=== PATIENT | male | born 1970 | race African-American/Black ===

== ENCOUNTER 2018-12-20 13:38 | Inpatient (IN) | payer OTHER ==
[2018-12-20 15:57] VITALS: BMI 28.8
--- NOTE | 2018-12-20 17:36 | HP ---
COWS - Scale Resting Pulse: 1= [place] 81-100 Sweatin= Chills/Flushing Restless Observation: 3= Extraneous Movement Pupil Size: 1= Pupils >than Normal Bone or Joint Aches: 2= Severe Diffuse Aches Runny Nose/ Eye Tearin= Runny Nose/Eyes GI Upset > 30mins: 3= Vomiting/Diarrhea Tremor Observation: 4= Gross Tremor/Twitching Yawning Observation: 0= None Anxiety or Irritability: 1=Feels Anxious/Irritable Goose Flesh Skin: 0=Smooth Skin COWS Score: 18 CIWA Score Nausea/Vomitin Muscle Tremors: 4-Moderate,w/Arms Extend Anxiety: 3 Agitation: 0-Normal Activity Paroxysmal Sweats: 2 Orientation: 0-Oriented Tacttile Disturbances: 1-Very Mild Itch/Numbness Auditory Disturbances: 0-None Visual Disturbances: 0-None Headache: 0-None Present CIWA-Ar Total Score: 13 - Admission Criteria [facility]ASAS Guidelines: Admission for Medically Managed Detox: Requires at least one of the followin. CIWA greater than 12 2. Seizures within the past 24 hours 3. Delirium tremens within the past 24 hours 4. Hallucinations within the past 24 hours 5. Acute intervention needed for co occurring medical disorder 6. Acute intervention needed for co occurring psychiatric disorder 7. Severe withdrawal that cannot be handled at a lower level of care (continued vomiting, continued diarrhea, abnormal vital signs) requiring intravenous medication and/or fluids 8. Patient presents the following: CIWA greater than 12 Admission Criteria Met: Admission criteria met Admission ROS [facility] Chief Complaint: alcohol and opioid withdrawal symptoms Allergies/Adverse Reactions: Allergies Allergy/AdvReac Type Severity Reaction Status Date / Time No Known Allergies Allergy Verified 12/20/18 15:44 History of Present Illness: Patient is a 48 yo AA male, domiciled with hx polysubstance use disorder: heroin , cocaine, marijuana, PCP and alcohol is here seeking inpatient detox d/t alcohol and opioid withdrawal symptoms, reports first time seeking treatment is currency under parole, reports was refered by his [facility] program [facility]. Denies hx of MAT tx. Denies hx of seizures, overdose or blackouts. PMHX: denies. Psych: anxiety and schizophrenia (IM Haldol injection at [facility] as per patient last injection 12/19/18) Denies SI/HI, reports hx of suicide attempt in 2013 Exam Limitations: No Limitations - Ebola screening Have you traveled outside of the country in the last 21 days: No Have you had contact with anyone from an Ebola affected area: No Do you have a fever: No - Review of Systems Constitutional: Chills, Loss of Appetite, Changes in sleep, Weakness, Unintentional Wgt. Loss EENT: reports: Nose Congestion Respiratory: reports: No Symptoms reported Cardiac: reports: No Symptoms Reported GI: reports: Diarrhea, Nausea, Poor Appetite, Poor Fluid Intake, Vomiting, Abdominal cramping : reports: No Symptoms Reported Musculoskeletal: reports: Back Pain, Muscle Pain Integumentary: reports: No Symptoms Reported Neuro: reports: Tremors (attributes to haldol injection) Endocrine: reports: No Symptoms Reported Hematology: reports: No Symptoms Reported Psychiatric: reports: Orientated x3, Anxious Other Systems: Reviewed and Negative Patient History - Patient Medical History Hx Anemia: No Hx Asthma: No Hx Chronic Obstructive Pulmonary Disease (COPD): No Hx Cancer: No Hx Cardiac Disorders: No Hx Congestive Heart Failure: No Hx Hypertension: No Hx Hypercholesterolemia: No Hx Pacemaker: No HX Cerebrovascular Accident: No Hx Seizures: No Hx Dementia: No Hx Diabetes: No Hx Gastrointestinal Disorders: No Hx Liver Disease: No Hx Genitourinary Disorders: No Hx Sexually Transmitted Disorders: No Hx Renal Disease (ESRD): No Hx Thyroid Disease: No Hx Human Immunodeficiency Virus (HIV): No Hx Hepatitis C: No Hx Depression: Yes Hx Suicide Attempt: Yes Hx Schizophrenia: Yes - Patient Surgical History Past Surgical History: No - PPD History Previous Implant?: No (+ TB Exposure 1996 tx w/ [facility]) Documented Results: Positive w/o proof PPD to be Administered?: No - Smoking Cessation Smoking history: Current every day smoker Have you smoked in the past 12 months: Yes Aproximately how many cigarettes per day: 20 Hx Chewing Tobacco Use: No Initiated information on smoking cessation: Yes 'Breaking Loose' booklet given: 12/20/18 - Substance & Tx. History Hx Alcohol Use: Yes Hx Substance Use: Yes Substance Use Type: Alcohol, Cocaine, Heroin, Marijuana, Opiates Hx Substance Use Treatment: No - Substances abused Heroin Substance route: Inhalation Frequency: Daily Amount used: 2 bags Age of first use: 17 Date of last use: 12/19/18 Cocaine Substance route: Smoking Frequency: Daily Amount used: $100 Age of first use: 17 Date of last use: 12/19/18 Marijuana/Hashish Substance route: Smoking Frequency: Daily Amount used: $40 Age of first use: 17 Date of last use: 12/19/18 PCP Substance route: Smoking Frequency: 1-3 times last 30 days Amount used: 2 bags Age of first use: 17 Date of last use: 12/13/18 Alcohol Substance route: Oral Frequency: Daily Amount used: 5 x 40 oz + 2 pints of liquor Age of first use: 17 Date of last use: 12/19/18 Family Disease History - Family Disease History Family Disease History: Other: Grandparent (heart disease ) Admission Physical Exam [facility] - Vital Signs Vital Signs: Vital Signs - 24 hr 12/20/18 15:43 Temperature 97.6 F Pulse Rate 81 Respiratory 18 Rate Blood Pressure 129/87 - Physical General Appearance: Yes: Disheveled, Mild Distress, Tremorous, Anxious HEENTM: Yes: EOMI, Hearing grossly Normal, Normal ENT Inspection, Normocephalic , Normal Voice, AMARA, Tm's normal, Other (involuntary tounge movents ( attributes to chronic haldol medication use)) Respiratory: Yes: Chest Non-Tender, Lungs Clear, Normal Breath Sounds, No Respiratory Distress, No Accessory Muscle Use Neck: Yes: Within Normal Limits Breast: Yes: Breast Exam Deferred Cardiology: Yes: Regular Rhythm, Regular Rate Abdominal: Yes: Normal Bowel Sounds, Non Tender, Soft, Protuberent Genitourinary: Yes: Within Normal Limits Back: Yes: Normal Inspection Musculoskeletal: Yes: full range of Motion, Gait Steady, Pelvis Stable Extremities: Yes: Normal Capillary Refill, Normal Inspection, Normal Range of Motion, Non-Tender Neurological: Yes: accounting practice manager II-XII NML intact, Fully Oriented, Alert, Motor Strength 5/5, Normal Mood/Affect, Normal Response Integumentary: Yes: Normal Color, Dry, Warm Lymphatic: Yes: Within Normal Limits - Diagnostic (1) Opioid dependence with withdrawal Current Visit: Yes Status: Acute Comment: Patient wishes to attend suboxone maintance program upon completing detox. Risk and benefits discussed methadone detox (2) Alcohol dependence with uncomplicated withdrawal Current Visit: Yes Status: Acute Comment: librium detox harm reduction reviewed follow up with rehab (3) Cocaine dependence, uncomplicated Current Visit: Yes Status: Acute Comment: harm reduction reviewed follow up with rehab (4) Cannabis dependence, uncomplicated Current Visit: Yes Status: Acute Comment: harm reduction reviewed follow up with rehab (5) Psychiatric disorder Current Visit: Yes Status: Suspected Comment: reports hx of schizophernia and reports received haldol injection 12/19/18 at [facility]. psych consult ordered continue to monitor Cleared for Admission S - Detox or Rehab [facility] Level of Care: Medically Managed Detox Regimen/Protocol: Methadone/Librium Breathalyzer - Breathalyzer Breathalyzer: 0 Urine Drug Screen - Test Device Lot number: [id number] Expiration date: 09/07/20 - Control Is test valid?: Yes - Results Drug screen NEGATIVE: No Urine drug screen results: THC-Marijuana, RUBINA-Cocaine, MOP-Opiates Inpatient Rehab Admission - Rehab Decision to Admit Inpatient rehab admission?: No
[2018-12-20] MEDS ORDERED: METHADONE HCL 10 MG TABLET (FOR DETOX USE ONLY) PO ONE (17:46)
[2018-12-20] MEDS ORDERED: NICOTINE POLACRILEX 2 MG GUM BUC PRN (17:46)
[2018-12-20] MEDS ORDERED: cloNIDine HCL 0.1 MG TABLET PO PRN (17:46)
[2018-12-20] MEDS ORDERED: BISMUTH SUBSALICYLATE 524 MG/30 ML UD PO PRN (17:46)
[2018-12-20] MEDS ORDERED: IBUPROFEN 400 MG TABLET (FP) PO PRN (17:46)
[2018-12-20] MEDS ORDERED: MAGNESIUM CITRATE 300 ML BOTTLE PO PRN (17:46)
[2018-12-20] MEDS ORDERED: ACETAMINOPHEN 325 MG TABLET (FP) PO PRN ×2 (17:46)
[2018-12-20] MEDS ORDERED: MAG HYDROX/AL HYDROX/SIMETH 30 ML UNIT-DOSE CUP PO PRN (17:46)
[2018-12-20] MEDS ORDERED: MENTHOL/PHENOL 1 EACH UD MM PRN (17:46)
[2018-12-20] MEDS ORDERED: MAGNESIUM HYDROX 2400MG/30ML ORAL SUSPENSION 30 ML CUP PO PRN (17:46)
[2018-12-20] MEDS ORDERED: METHOCARBAMOL 500 MG TABLET PO PRN (17:46)
[2018-12-20] MEDS ORDERED: chlordiazePOXIDE HCL 25 MG CAPSULE PO PRN (17:46)
[2018-12-20] MEDS ORDERED: MELATONIN 5 MG TABLETS PO PRN (17:46)
[2018-12-20] MEDS ORDERED: diphenhydrAMINE HCL 25 MG CAPSULE (FP) PO ONE (20:45)
[2018-12-20] MEDS: chlordiazePOXIDE HCL 25 MG CAPSULE PO SCH (22:15)
[2018-12-20] MEDS: THIAMINE HCL 100 MG TABLET (FP) PO SCH (22:15)
[2018-12-20] MEDS: diphenhydrAMINE HCL 50 MG CAPSULE PO SCH (22:16)
[2018-12-21] MEDS: chlordiazePOXIDE HCL 25 MG CAPSULE PO SCH ×4 (06:14→22:27)
[2018-12-21 09:53] LABS: ALBUMIN 3.4 g/dl (3.4-5.0); BILIRUBIN,TOTAL 0.4 mg/dL (0.2-1); BLOOD UREA NITROGEN 9.5 mg/dL (7-18); CALCIUM 8.5 mg/dL (8.5-10.1); CREATININE 1.1 mg/dL (0.55-1.3); HEMATOCRIT 38.5 % (35.4-49); HEMOGLOBIN 12.7 GM/dL (11.7-16.9); MCH 35.1 pg (25.7-33.7); MCHC 33.1 g/dl (32.0-35.9); PLATELET COUNT 203 K/MM3 (134-434); POTASSIUM 3.9 mmol/L (3.5-5.1); RBC 3.63 M/mm3 (4.00-5.60); RDW 11.8 % (11.9-15.9); TOT PROT 7.8 g/dl (6.4-8.2); WHITE BLOOD COUNT 4.2 K/mm3 (4.0-10.0)
[2018-12-21] MEDS ORDERED: METHADONE HCL 5 MG TABLET (FOR DETOX USE ONLY) PO ONE (10:00)
[2018-12-21] MEDS: PRENATAL VITAMINS W/ FOLIC ACID TABLET (FP) PO SCH (10:23)
[2018-12-21] MEDS: NICOTINE 14 MG/24 HOURS TOPICAL PATCH TD SCH (10:23)
[2018-12-21] MEDS: ELVITEG/COB/EMTRI/TENOF (GENVOYA) TABLET (NF) PO SCH (11:50)
--- NOTE | 2018-12-21 13:44 | CONSULT ---
[facility] Psychiatric Consult - Data Date of interview: 12/21/18 Admission source: [facility] Identifying data: First admission to [facility] for this 48 y/o AA male referred by his [facility] program, [facility], for detoxification (heroin, cocaine, cannabis, phencyclidine, alcohol). Seen at [address] [place] [address]. Patient is single, no dependents, domiciled, unemployed and supported on SSI benefits. Substance Abuse History: Discussed in this interview. Details in current [facility] report as follows : Smoking history: Current every day smoker. Have you smoked in the past 12 months: Yes. Aproximately how many cigarettes per day: 20. Hx Chewing Tobacco Use: No. Initiated information on smoking cessation: Yes. ' Breaking Loose' booklet given: 12/20/18. - Substance & Tx. History. Hx Alcohol Use: Yes. Hx Substance Use: Yes. Substance Use Type: Alcohol, Cocaine , Heroin, Marijuana, Opiates. Hx Substance Use Treatment: No. - Substances abused. Heroin. Substance route: Inhalation. Frequency: Daily. Amount used: 2 bags. Age of first use: 17. Date of last use: 12/19/18. Cocaine. Substance route: Smoking. Frequency: Daily. Amount used: $100. Age of first use: 17. Date of last use: 12/19/18. Marijuana/Hashish. Substance route: Smoking. Frequency: Daily. Amount used: $40. Age of first use: 17. Date of last use: 12/19/18. PCP. Substance route: Smoking. Frequency: 1-3 times last 30 days. Amount used: 2 bags. Age of first use: 17. Date of last use: . Alcohol. Substance route: Oral. Frequency: Daily. Amount used: 5 x 40 oz + 2 pints of liquor. Age of first use: 17. Date of last use: 12/19/18 Medical History: Medical profile is remarkable for HIV infection, peripheral neuropathy and history of positive PPD (treated with INH/B6). Psychiatric History: Patient reported onset of psychiatric disturbances in childhood (age 8-9). Diagnosed later with schizophrenia vs schizoaffective disorder. History of multiple psychiatric hospitalizations ([facility], [facility], [place]). Mr Alcaraz informs that he is followed [facility]. Maintained on haldol decanoate 100 mg IM monthly (received injection on 12/09/18 as per self-report) + cogentin 1 mg/ hs + depakote 250 mg/bid. Haldol dose is confirmed via review of external pharmacy activity (refill by Dr Sierra Tang, on 11/14/18, at [facility] # [id number]). Patient admits augustine a history of suicide attempt via wrist- cutting years ago. Physical/Sexual Abuse/Trauma History: Patient denies. Additional Comment: Urine drug screen results: THC-Marijuana, RUBINA-Cocaine, MOP- Opiates. Noted. Mental Status Exam - Mental Status Exam Alert and Oriented to: Time, Place, Person Cognitive Function: Grossly Intact Patient Appearance: Well Groomed Mood: Withdrawn, Anxious Affect: Mood Congruent, Constricted Patient Behavior: Fatigued, Cooperative Speech Pattern: Clear Voice Loudness: Normal Thought Process: Goal Oriented Thought Disorder: Not Present Hallucinations: Denies Suicidal Ideation: Denies Homicidal Ideation: Denies Insight/Judgement: Poor Sleep: Well Appetite: Good Gait/Station: Other (not observed. In bed for entire interview) Psychiatric Findings - Problem List ([place] 1, 2,3) (1) Schizophrenia Current Visit: Yes Status: Chronic (2) Opioid dependence with withdrawal Current Visit: Yes Status: Acute (3) Alcohol dependence with uncomplicated withdrawal Current Visit: Yes Status: Acute (4) Cannabis dependence, uncomplicated Current Visit: Yes Status: Chronic (5) Cocaine dependence, uncomplicated Current Visit: Yes Status: Chronic (6) Nicotine dependence Current Visit: Yes Status: Chronic (7) Substance induced mood disorder Current Visit: Yes Status: Chronic - Initial Treatment Plan Initial Treatment Plan: Psychoeducation. Sleep hygiene. Support. Detoxification. Harm reduction. Motivational counseling for sobriety. Relapse prevention discussed (MAT) with this patient. Resumed : cogentin 1 mg po hs + depakote 250 mg po bid. Valproic acid : pending. Side effects/benefits of these medications are discussed with the patient. Mr Mcdowell has expressed his agreement with this plan of care. Gave verbal consent. Observation.
--- NOTE | 2018-12-21 13:46 | EKG ---
Test Reason : Blood Pressure : / mmHG Vent. Rate : 071 BPM Atrial Rate : 071 BPM P-R Int : 152 ms QRS Dur : 092 ms QT Int : 402 ms P-R-T Axes : 056 029 030 degrees QTc Int : 436 ms NORMAL SINUS RHYTHM MINIMAL VOLTAGE CRITERIA FOR LVH, MAY BE NORMAL VARIANT NO PREVIOUS ECGS AVAILABLE Confirmed by CYNTHIA OROZCO MD ([id number]) on 12/21/2018 1:46:45 PM Referred By: YOSSI CARNES Confirmed By:CYNTHIA OROZCO MD
--- NOTE | 2018-12-21 16:29 | PN ---
S CIWA - CIWA Score Nausea/Vomitin Muscle Tremors: 2 Anxiety: 3 Agitation: 0-Normal Activity Paroxysmal Sweats: 2 Orientation: 0-Oriented Tacttile Disturbances: 2-Mild Itch/Numbness/Burn Auditory Disturbances: 2-Mild Harshness/Frighten Visual Disturbances: 0-None Headache: 0-None Present CIWA-Ar Total Score: 13 BHS COWS - Scale Resting Pulse: 0= [place] 80 or Below Sweatin= Chills/Flushing Restless Observation: 0= Sits Still Pupil Size: 0= Normal to Room Light Bone or Joint Aches: 2= Severe Diffuse Aches Runny Nose/ Eye Tearin= Nasal Congestion GI Upset > 30mins: 2= Nausea/Diarrhea Tremor Observation of Outstretched Hands: 2= Slight Tremor Visible Yawning Observation: 1= 1-2x During Session Anxiety or Irritability: 2=Irritable/Anxious Goose Flesh Skin: 3=Piloerection COWS Score: 14 BHS Progress Note (SOAP) Subjective: Tremors, Body Aches, Anxious, Nausea. Objective: PATIENT A & O X 3. IN NO ACUTE DISTRESS. 12/21/18 16:29 Vital Signs Temperature 97.5 F L 12/21/18 13:08 Pulse Rate 62 12/21/18 13:08 Respiratory Rate 18 12/21/18 13:08 Blood Pressure 125/87 12/21/18 13:08 O2 Sat by Pulse Oximetry (%) Laboratory Tests 12/21/18 12/21/18 12/21/18 08:00 08:00 08:00 WBC 4.2 RBC 3.63 L Hgb 12.7 Hct 38.5 MCV 106.0 H MCH 35.1 H MCHC 33.1 RDW 11.8 L Plt Count 203 MPV 9.0 Sodium 139 Potassium 3.9 Chloride 105 Carbon Dioxide 29 Anion Gap 5 L BUN 9.5 Creatinine 1.1 Est GFR (CKD-EPI)AfAm 92.16 Est GFR (CKD-EPI)NonAf 79.52 Random Glucose 88 Calcium 8.5 Total Bilirubin 0.4 AST 24 ALT 25 Alkaline Phosphatase 82 Total Protein 7.8 Albumin 3.4 Valproic Acid RPR Titer Nonreactive 12/21/18 11:40 WBC RBC Hgb Hct MCV MCH MCHC RDW Plt Count MPV Sodium Potassium Chloride Carbon Dioxide Anion Gap BUN Creatinine Est GFR (CKD-EPI)AfAm Est GFR (CKD-EPI)NonAf Random Glucose Calcium Total Bilirubin AST ALT Alkaline Phosphatase Total Protein Albumin Valproic Acid < 3.0 L RPR Titer LABS NOTED. Assessment: 12/21/18 16:29 WITHDRAWAL SYMPTOMS. Plan: CONTINUE DETOX.
[2018-12-21] MEDS ORDERED: diphenhydrAMINE HCL 25 MG CAPSULE (FP) PO ONE (21:13)
[2018-12-21] MEDS: DIVALPROEX SODIUM 250 MG TABLET E.C. PO SCH (22:27)
[2018-12-21] MEDS: BENZTROPINE MESYLATE 1 MG TABLET (FP) PO SCH (22:27)
[2018-12-21] MEDS: diphenhydrAMINE HCL 50 MG CAPSULE PO SCH (22:27)
[2018-12-21] MEDS: THIAMINE HCL 100 MG TABLET (FP) PO SCH (22:27)
[2018-12-22] MEDS: chlordiazePOXIDE HCL 25 MG CAPSULE PO SCH ×4 (05:37→22:11)
[2018-12-22] MEDS ORDERED: METHADONE HCL 10 MG TABLET (FOR DETOX USE ONLY) PO ONE (10:00)
[2018-12-22] MEDS: PRENATAL VITAMINS W/ FOLIC ACID TABLET (FP) PO SCH (10:55)
[2018-12-22] MEDS: DIVALPROEX SODIUM 250 MG TABLET E.C. PO SCH ×2 (10:56→22:11)
[2018-12-22] MEDS: ELVITEG/COB/EMTRI/TENOF (GENVOYA) TABLET (NF) PO SCH (10:56)
[2018-12-22] MEDS: NICOTINE 14 MG/24 HOURS TOPICAL PATCH TD SCH (10:57)
--- NOTE | 2018-12-22 15:51 | PN ---
[facility] CIWA - CIWA Score Nausea/Vomitin-No Nausea/No Vomiting Muscle Tremors: 3 Anxiety: 3 Agitation: 0-Normal Activity Paroxysmal Sweats: No Perspiration Orientation: 2-Disoriented Date<2 days Tacttile Disturbances: 0-None Auditory Disturbances: 0-None Visual Disturbances: 2-Mild Sensitivity Headache: 0-None Present CIWA-Ar Total Score: 10 BHS COWS - Scale Resting Pulse: 0= [place] 80 or Below Sweatin= No chills or Flushing Restless Observation: 0= Sits Still Pupil Size: 0= Normal to Room Light Bone or Joint Aches: 2= Severe Diffuse Aches Runny Nose/ Eye Tearin= None GI Upset > 30mins: 0= None Tremor Observation of Outstretched Hands: 2= Slight Tremor Visible Yawning Observation: 1= 1-2x During Session Anxiety or Irritability: 2=Irritable/Anxious Goose Flesh Skin: 3=Piloerection COWS Score: 10 S Progress Note (SOAP) Subjective: Fatigue, Tremors, Body Aches, Anxious. Objective: PATIENT A & O X 2 (UNCERTAIN ABOUT CURRENT DAY / DATE). IN NO ACUTE DISTRESS. 12/22/18 15:50 Vital Signs Temperature 97.8 F 12/22/18 09:32 Pulse Rate 71 12/22/18 09:32 Respiratory Rate 18 12/22/18 09:32 Blood Pressure 130/96 12/22/18 09:32 O2 Sat by Pulse Oximetry (%) Laboratory Tests 12/21/18 12/21/18 12/21/18 08:00 08:00 08:00 WBC 4.2 RBC 3.63 L Hgb 12.7 Hct 38.5 MCV 106.0 H MCH 35.1 H MCHC 33.1 RDW 11.8 L Plt Count 203 MPV 9.0 Sodium 139 Potassium 3.9 Chloride 105 Carbon Dioxide 29 Anion Gap 5 L BUN 9.5 Creatinine 1.1 Est GFR (CKD-EPI)AfAm 92.16 Est GFR (CKD-EPI)NonAf 79.52 Random Glucose 88 Calcium 8.5 Total Bilirubin 0.4 AST 24 ALT 25 Alkaline Phosphatase 82 Total Protein 7.8 Albumin 3.4 Valproic Acid RPR Titer Nonreactive 12/21/18 11:40 WBC RBC Hgb Hct MCV MCH MCHC RDW Plt Count MPV Sodium Potassium Chloride Carbon Dioxide Anion Gap BUN Creatinine Est GFR (CKD-EPI)AfAm Est GFR (CKD-EPI)NonAf Random Glucose Calcium Total Bilirubin AST ALT Alkaline Phosphatase Total Protein Albumin Valproic Acid < 3.0 L RPR Titer LABS NOTED. Assessment: 12/22/18 15:51 WITHDRAWAL SYMPTOMS. Plan: CONTINUE DETOX. ENCOURAGE AMBULATION.
[2018-12-22] MEDS ORDERED: diphenhydrAMINE HCL 25 MG CAPSULE (FP) PO ONE (20:44)
[2018-12-22] MEDS: BENZTROPINE MESYLATE 1 MG TABLET (FP) PO SCH (22:11)
[2018-12-22] MEDS: THIAMINE HCL 100 MG TABLET (FP) PO SCH (22:12)
[2018-12-22] MEDS: diphenhydrAMINE HCL 50 MG CAPSULE PO SCH (22:12)
[2018-12-23] MEDS ORDERED: chlordiazePOXIDE HCL 10 MG CAPSULE PO PRN
[2018-12-23] MEDS: chlordiazePOXIDE HCL 10 MG CAPSULE PO SCH ×4 (05:37→22:27)
[2018-12-23] MEDS ORDERED: METHADONE HCL 5 MG TABLET (FOR DETOX USE ONLY) PO ONE (06:00)
[2018-12-23] MEDS: PRENATAL VITAMINS W/ FOLIC ACID TABLET (FP) PO SCH (10:24)
[2018-12-23] MEDS: NICOTINE 14 MG/24 HOURS TOPICAL PATCH TD SCH (10:24)
[2018-12-23] MEDS: DIVALPROEX SODIUM 250 MG TABLET E.C. PO SCH ×2 (10:24→22:27)
[2018-12-23] MEDS: ELVITEG/COB/EMTRI/TENOF (GENVOYA) TABLET (NF) PO SCH (10:25)
--- NOTE | 2018-12-23 13:22 | PN ---
S CIWA - CIWA Score Nausea/Vomitin-No Nausea/No Vomiting Muscle Tremors: 2 Anxiety: 2 Agitation: 2 Paroxysmal Sweats: No Perspiration Orientation: 0-Oriented Tacttile Disturbances: 0-None Auditory Disturbances: 0-None Visual Disturbances: 0-None Headache: 0-None Present CIWA-Ar Total Score: 6 BHS COWS - Scale Resting Pulse: 0= [place] 80 or Below Sweatin= Chills/Flushing Restless Observation: 0= Sits Still Pupil Size: 0= Normal to Room Light Bone or Joint Aches: 1= Mild Discomfort Runny Nose/ Eye Tearin= None GI Upset > 30mins: 1= Stomach Cramp Tremor Observation of Outstretched Hands: 1= Tremor [place], Not Seen Yawning Observation: 1= 1-2x During Session Anxiety or Irritability: 1=Feels Anxious/Irritable Goose Flesh Skin: 0=Smooth Skin COWS Score: 6 S Progress Note (SOAP) Subjective: doing well with librium and methadone [place] for Prep mild tremor less body aches Objective: 12/23/18 13:23 Vital Signs Temperature 97.2 F L 12/23/18 09:09 Pulse Rate 70 12/23/18 09:09 Respiratory Rate 18 12/23/18 09:09 Blood Pressure 135/87 12/23/18 09:09 O2 Sat by Pulse Oximetry (%) Laboratory Last Values WBC 4.2 K/mm3 (4.0-10.0) 12/21/18 08:00 RBC 3.63 M/mm3 (4.00-5.60) L 12/21/18 08:00 Hgb 12.7 GM/dL (11.7-16.9) 12/21/18 08:00 Hct 38.5 % (35.4-49) 12/21/18 08:00 MCV 106.0 fl (80-96) H 12/21/18 08:00 MCH 35.1 pg (25.7-33.7) H 12/21/18 08:00 MCHC 33.1 g/dl (32.0-35.9) 12/21/18 08:00 RDW 11.8 % (11.9-15.9) L 12/21/18 08:00 Plt Count 203 K/MM3 (134-434) 12/21/18 08:00 MPV 9.0 fl (7.5-11.1) 12/21/18 08:00 Sodium 139 mmol/L (136-145) 12/21/18 08:00 Potassium 3.9 mmol/L (3.5-5.1) 12/21/18 08:00 Chloride 105 mmol/L (98-107) 12/21/18 08:00 Carbon Dioxide 29 mmol/L (21-32) 12/21/18 08:00 Anion Gap 5 MMOL/L (8-16) L 12/21/18 08:00 BUN 9.5 mg/dL (7-18) 12/21/18 08:00 Creatinine 1.1 mg/dL (0.55-1.3) 12/21/18 08:00 Est GFR (CKD-EPI)AfAm 92.16 12/21/18 08:00 Est GFR (CKD-EPI)NonAf 79.52 12/21/18 08:00 Random Glucose 88 mg/dL (74-106) 12/21/18 08:00 Calcium 8.5 mg/dL (8.5-10.1) 12/21/18 08:00 Total Bilirubin 0.4 mg/dL (0.2-1) 12/21/18 08:00 AST 24 U/L (15-37) 12/21/18 08:00 ALT 25 U/L (13-61) 12/21/18 08:00 Alkaline Phosphatase 82 U/L (45-117) 12/21/18 08:00 Total Protein 7.8 g/dl (6.4-8.2) 12/21/18 08:00 Albumin 3.4 g/dl (3.4-5.0) 12/21/18 08:00 Valproic Acid < 3.0 ug/mL (50-100) L 12/21/18 11:40 RPR Titer Nonreactive (NONREACTIVE) 12/21/18 08:00 lab noted long history of bipolar treated with depakote Assessment: 12/23/18 13:25 alcohol and opiate withdrawal sx Plan: continue librium and methadone detox
[2018-12-23] MEDS ORDERED: diphenhydrAMINE HCL 25 MG CAPSULE (FP) PO ONE (21:22)
[2018-12-23] MEDS: diphenhydrAMINE HCL 50 MG CAPSULE PO SCH (22:26)
[2018-12-23] MEDS: BENZTROPINE MESYLATE 1 MG TABLET (FP) PO SCH (22:27)
[2018-12-23] MEDS: THIAMINE HCL 100 MG TABLET (FP) PO SCH (22:27)
[2018-12-24] MEDS ORDERED: chlordiazePOXIDE HCL 10 MG CAPSULE PO SCH (05:00)
[2018-12-24 06:30] VITALS: BP 117/83; PULSE 81; TEMP 99.3
--- NOTE | 2018-12-24 15:55 | DS ---
[facility] Detox Discharge Summary Admission Date: 12/20/18 Discharge Date: 12/24/18 - History Present History: Alcohol Dependence Additional Comments: 48 years old male 1st patient [facility] [place] admission admitted on 12/20/18 for alcohol and opiate withdrawal sx management did well with librium and methadone detox regimen no complication through out the detox stay seen by psychiatrist treated with cogentin and depakote tolerate well patient walk out the detox unit and out the facility conventional underwriter do not have the opportunity to assess nor evaluate the patient - Physical Exam Results Vital Signs: Vital Signs Temperature 99.3 F 12/24/18 06:29 Pulse Rate 81 12/24/18 06:29 Respiratory Rate 18 12/24/18 06:29 Blood Pressure 117/83 12/24/18 06:29 O2 Sat by Pulse Oximetry (%) - Treatment Hospital Course: Detox Protocol Followed, Detoxed Safely, Responded well, Discharged Condition Good, Rehab Referral Accepted - Medication Discharge Medications: Ambulatory Orders Benztropine Mesylate [Cogentin -] 1 mg PO HS 12/20/18 Diphenhydramine [Benadryl Capsule -] 50 mg PO HS 12/20/18 Divalproex [Depakote -] 250 mg PO HS 12/20/18 Elviteg/Cob/Emtri/Tenof Alafen [Genvoya Tablet] 1 each PO DAILY 12/20/18 - AMA Did Patient Leave Against Medical Advice: No CIWA Score - CIWA Score Nausea/Vomitin-No Nausea/No Vomiting Muscle Tremors: 1-None Visible, but [place] Anxiety: 1-Mildly Anxious Agitation: 1-Slight > Activity Paroxysmal Sweats: No Perspiration Orientation: 0-Oriented Tacttile Disturbances: 0-None Auditory Disturbances: 0-None Visual Disturbances: 0-None Headache: 0-None Present CIWA-Ar Total Score: 3 COWS (PN) - Opiate Withdrawal Resting Pulse: 1= [place] 81-100 Sweatin= Chills/Flushing Restless Observation: 0= Sits Still Pupil Size: 0= Normal to Room Light Bone or Joint Aches: 0= None Runny Nose/ Eye Tearin= None GI Upset > 30mins: 0= None Tremor Observation of Outstretched Hands: 1= Tremor [place], Not Seen Yawning Observation: 0= None Anxiety or Irritability: 1=Feels Anxious/Irritable Goose Flesh Skin: 0=Smooth Skin COWS Score: 4
[2018-12-25] MEDS ORDERED: chlordiazePOXIDE HCL 10 MG CAPSULE PO ONE (05:00)
== END 2018-12-24 08:48 | disposition left against medical advice (07) | DRG 770 ==
LOC: YASAS 13:38 → Y3N 18:31
PROVIDERS: ADMIT Surgery; ATTEND Surgery
PROC: HZ2ZZZZ Detoxification Services for Substance Abuse Treatment (ICD-10-PCS; principal; 2018-12-20)
DX: F11.23 Opioid dependence with withdrawal (principal); F10.230 Alcohol dependence with withdrawal, uncomplicated; F14.20 Cocaine dependence, uncomplicated; F12.20 Cannabis dependence, uncomplicated; F17.210 Nicotine dependence, cigarettes, uncomplicated; F19.24 Other psychoactive substance dependence with psychoactive substance-induced mood disorder; F20.9 Schizophrenia, unspecified; F99 Mental disorder, not otherwise specified; Z21 Asymptomatic human immunodeficiency virus [HIV] infection status; G62.9 Polyneuropathy, unspecified
CPT/HCPCS: 36415; 71046-TC-FY; 80053; 80164; 85027; 86593; 93005; 93010